=== PATIENT | female | born 1955 ===

== ENCOUNTER 2020-12-01 10:38 | Emergency (ER) | payer OTHER ==
[2020-12-01] MEDS ORDERED: Bacitracin 1 PK ONE (11:02)
[2020-12-01] MEDS ORDERED: Boostrix 0.5 ML (Tdap) VIAL ONE (11:02)
== END 2020-12-01 11:20 | disposition home or self-care (01) ==
LOC: MADERS 10:38
DX: S51.851A Open bite of right forearm, initial encounter (principal); L03.113 Cellulitis of right upper limb; I10 Essential (primary) hypertension; Z79.899 Other long term (current) drug therapy; W55.01XA Bitten by cat, initial encounter
CPT/HCPCS: 90471; 90715